=== PATIENT | female | born 1995 | race Caucasian/White ===

== ENCOUNTER 2021-01-14 05:33 | Inpatient (IN) ==
[2021-01-14] MEDS ORDERED: ONDANSETRON 4 MG/2 ML VIAL IV PRN ×2 (05:49→14:04)
[2021-01-14] MEDS ORDERED: BUTORPHANOL 1 MG/ML VIAL IV PRN (05:49)
[2021-01-14] MEDS ORDERED: AMPICILLIN INJ 2,000 MG in SODIUM CHLORIDE 0.9% 100 ML IV ONE (05:52)
[2021-01-14] MEDS ORDERED: OXYTOCIN/LR 20 UNIT/1,000 ML BAG IV SCH (06:00)
[2021-01-14] MEDS ORDERED: LACTATED RINGERS 1,000 ML IV SCH ×2 (06:00→14:04)
[2021-01-14 06:29] LABS: Basophils % 0.4 % (0.0-0.8); Eosinophils # 0.1 10*3/uL (0.0-0.87); Eosinophils % 0.6 % (0.00-10.9); Hematocrit 40.1 VOL% (35.7-47.0); Hemoglobin 12.5 GM/DL (12.0-16.0); Immature Granulocytes % 0.5 %; Immature Granulocytes Absolute 0.05 #; Lymphocytes # 2.1 10*3/uL (1.4-4.0); Lymphocytes % 22.4 % (21.3-54.2); Mean Corpuscular HGB Conc 31.2 GM/DL (32-36); Mean Corpuscular Volume 88.1 FL (87-102); Mean Platelet Volume 10.2 FL (9.6-12.0); Monocytes % 7.9 % (1.7-12.7); Neutrophils % 68.2 % (38.7-73.9); Platelet Count 267 T/CUMM (130-400); Red Blood Count 4.55 MC/CUMM (3.8-5.5); Red Cell Distribution Width 13.2 % (9.3-17.3); White Blood Count 9.2 T/CUMM (4-12)
[2021-01-14 06:42] LABS: Albumin 3.1 G/DL (3.4-5.0); Bilirubin,Total 0.5 MG/DL (0.20-1.00); Calcium 9.1 MG/DL (8.5-10.1); Potassium 3.4 MMOL/L (3.5-5.1); Total Protein 7.6 G/DL (6.4-8.2)
[2021-01-14] MEDS ORDERED: ePHEDrine 50 MG/ML VIAL IV PRN (07:00)
[2021-01-14] MEDS ORDERED: FAMOTIDINE 20 MG/2 ML VIAL IV ONE (07:00)
[2021-01-14] MEDS ORDERED: fentaNYL 2 MCG/ROPIV 0.2% EPID 100 ML EPIDURAL SCH (07:00)
[2021-01-14] MEDS ORDERED: CITRIC ACID/SODIUM CITRATE 30 ML UDCUP PO ONE (07:00)
[2021-01-14] MEDS ORDERED: hydrOXYzine HCL 25 MG/1 ML VIAL IM PRN (07:00)
[2021-01-14] MEDS ORDERED: diphenhydrAMINE 50 MG/1 ML VIAL IV PRN ×2 (07:00)
[2021-01-14] MEDS ORDERED: LACTATED RINGERS 1,000 ML IV ONE (07:00)
[2021-01-14] MEDS ORDERED: PROMETHAZINE 25 MG/1 ML VIAL IM ONE (07:00)
[2021-01-14] MEDS ORDERED: NALOXONE 0.4 MG/ML VIAL IV PRN (07:00)
[2021-01-14] MEDS ORDERED: miSOPROStoL 200 MCG TABLET ONE (10:13)
[2021-01-14] MEDS ORDERED: TRANEXAMIC ACID 1,000 MG/10 ML VIAL ONE (10:13)
[2021-01-14] MEDS ORDERED: OXYTOCIN/LR 20 UNIT/1,000 ML BAG IV ONE ×2 (10:13→14:25)
[2021-01-14] MEDS ORDERED: CARBOPROST TROMETHAMINE 250 MCG/ML AMP IM ONE (10:14)
[2021-01-14] MEDS ORDERED: METHYLERGONOVINE 0.2 MG/1 ML AMP ONE (10:14)
[2021-01-14] MEDS ORDERED: AMPICILLIN INJ 1,000 MG in SODIUM CHLORIDE 0.9% 100 ML IV SCH (10:30)
[2021-01-14 11:09] LABS: Cord Arterial Blood HCO3 23.1 MMOL/L
[2021-01-14 11:10] LABS: Cord Venous Blood HCO3 21.5 MMOL/L; Cord Venous Blood PCO2 46.8 MMHG; Cord Venous Blood PO2 23.6
[2021-01-14] MEDS ORDERED: MAGNESIUM HYDROXIDE SUSP 30 ML UDCUP PO PRN (14:04)
[2021-01-14] MEDS ORDERED: BENZOCAINE/MENTHOL LOZENGE 18/BOX PO PRN (14:04)
[2021-01-14] MEDS ORDERED: BISACODYL 10 MG SUPP RECTAL PRN (14:04)
[2021-01-14] MEDS ORDERED: IBUPROFEN 800 MG TABLET PO ONE (14:08)
[2021-01-14] MEDS ORDERED: BENZOCAINE 20%/MENTHOL 0.5% SPRAY 56 GM CAN TOP PRN (17:02)
[2021-01-14] MEDS: POTASSIUM CHLORIDE 20 MEQ TABLET PO PRN ×3 (17:47→21:59)
[2021-01-14] MEDS: DOCUSATE SODIUM 100 MG CAPSULE PO PRN (20:19)
[2021-01-14] MEDS: IBUPROFEN 800 MG TABLET PO PRN (21:02)
[2021-01-15 06:07] LABS: Basophils % 0.2 % (0.0-0.8); Eosinophils # 0.2 10*3/uL (0.0-0.87); Eosinophils % 1.2 % (0.00-10.9); Immature Granulocytes % 0.6 %; Immature Granulocytes Absolute 0.07 #; Lymphocytes # 2.7 10*3/uL (1.4-4.0); Lymphocytes % 22.3 % (21.3-54.2); Mean Corpuscular HGB Conc 30.3 GM/DL (32-36); Mean Corpuscular Volume 91.5 FL (87-102); Mean Platelet Volume 10.4 FL (9.6-12.0); Monocytes % 7.5 % (1.7-12.7); Neutrophils % 68.2 % (38.7-73.9); Red Cell Distribution Width 13.2 % (9.3-17.3); White Blood Count 12.2 T/CUMM (4-12)
[2021-01-15 06:08] LABS: Red Blood Count 3.17 MC/CUMM (3.8-5.5)
[2021-01-15 06:09] LABS: Hemoglobin 8.8 GM/DL (12.0-16.0); Platelet Count 187 T/CUMM (130-400)
[2021-01-15] MEDS: IBUPROFEN 800 MG TABLET PO PRN ×3 (07:23→22:04)
[2021-01-15] MEDS: FERROUS SULFATE 325 MG TABLET PO SCH ×2 (08:48→21:19)
[2021-01-15] MEDS: MULTIVITAMIN (PRENATAL) TABLET PO SCH (08:48)
[2021-01-15] MEDS: DOCUSATE SODIUM 100 MG CAPSULE PO PRN ×2 (08:48→21:19)
[2021-01-15] MEDS: ACETAMINOPHEN 325 MG TABLET PO PRN ×2 (11:11→21:19)
[2021-01-16] MEDS: FERROUS SULFATE 325 MG TABLET PO SCH ×2 (07:36→09:59)
[2021-01-16] MEDS: IBUPROFEN 800 MG TABLET PO PRN (07:36)
[2021-01-16] MEDS: MULTIVITAMIN (PRENATAL) TABLET PO SCH ×2 (07:36→09:59)
[2021-01-16] MEDS: DOCUSATE SODIUM 100 MG CAPSULE PO PRN (07:37)
[2021-01-16 09:05] VITALS: BP 110/60
== END 2021-01-16 11:27 | disposition home or self-care (01) | DRG 807 ==
LOC: N.LD 05:33 → N.OB 14:30
PROVIDERS: ADMIT Specialist; ATTEND Specialist